=== PATIENT | male | born 2000 | race Caucasian/White ===

== ENCOUNTER 2021-02-21 16:51 | Observation (INO) ==
[2021-02-21] MEDS ORDERED: Naloxone 0.4 MG/ML INJ IVP PRN (20:00)
[2021-02-21] MEDS ORDERED: Ondansetron 4 MG/2 ML VIAL IVP PRN (20:00)
[2021-02-21] MEDS ORDERED: Acetaminophen 325 MG TABLET PO PRN (20:00)
[2021-02-21] MEDS ORDERED: D5% in 0.45% NACL 1,000 ML IVC PRN (20:09)
[2021-02-21] MEDS ORDERED: Insulin LISPRO 300 UNITS/3 ML VIAL SUBQ PRN (20:09)
[2021-02-21] MEDS ORDERED: *HR* Dextrose 50 % in Water (Syg) 50 ML SYRINGE IVP PRN (20:09)
[2021-02-21] MEDS ORDERED: 0.9 % Sodium Chloride w KCl 20 MEQ/1,000 ML MLS IVC SCH (20:15)
[2021-02-21] MEDS ORDERED: 0.9 % Sodium Chloride 1,000 ML IVC SCH (20:15)
[2021-02-21] MEDS ORDERED: Melatonin 3 MG TABLET PO PRN (21:00)
[2021-02-21 21:08] LABS: BUN/Creatinine Ratio 15 (6-26); Blood Urea Nitrogen 15 mg/dL (6-20); Calcium 8.1 mg/dL (8.6-10.3); Carbon Dioxide 9 mEq/L (23-29); Chloride 102 mEq/L (98-107); Glucose 222 mg/dL (70-105); Osmolality,Calculated 280 (280-300); Potassium 4.2 mEq/L (3.5-5.1); Sodium 131 mEq/L (136-145); eGFR For African Americans > 60; eGFR For Non-African Americans > 60
[2021-02-22 00:52] LABS: Basophils % 0.2 %; Eosinophils % 0.2 %; Hematocrit 42.7 % (37.5-50.1); Immature Granulocytes % 0.8 % (0-4); Lymphocytes # 1.8 K/mcL (0.6-4.6); Lymphocytes % 13.5 %; Mean Corpuscular HGB Conc 35.1 g/dL (31.6-35.5); Mean Corpuscular Hemoglobin 29.4 pg (28.0-33.3); Mean Corpuscular Volume 83.7 fL (83.0-100.0); Mean Platelet Volume 10.4 fL (9.4-12.4); Monocytes # 0.7 K/mcL (0.0-1.3); Neutrophils # 10.7 K/mcL (1.6-8.9); Platelet Count 262 K/mcL (140-400); Red Cell Distribution Width 12.8 % (11.5-14.5); Segmented Neutrophils % 80.3 %; White Blood Count 13.3 K/mcL (4.3-11.1)
[2021-02-22 01:10] LABS: Magnesium 1.9 mg/dL (1.6-2.6); Phosphorous 1.8 mg/dL (2.7-4.5)
[2021-02-22] MEDS: 0.9 % Sodium Chloride 1,000 ML IVC SCH ×4 (01:15→11:41)
[2021-02-22 01:17] LABS: BUN/Creatinine Ratio 13 (6-26); Blood Urea Nitrogen 13 mg/dL (6-20); Calcium 8.2 mg/dL (8.6-10.3); Carbon Dioxide 10 mEq/L (23-29); Chloride 106 mEq/L (98-107); Glucose 129 mg/dL (70-105); Osmolality,Calculated 278 (280-300); Potassium 3.7 mEq/L (3.5-5.1); Sodium 133 mEq/L (136-145); eGFR For African Americans > 60; eGFR For Non-African Americans > 60
[2021-02-22] MEDS: D5% in 0.45% NACL w KCl 20 MEQ/1,000 ML MLS IVC PRN ×2 (01:57→05:55)
[2021-02-22 06:04] LABS: Estimated Average Glucose 324 mg/dl; Hemoglobin A1C 12.9 %
[2021-02-22 06:54] LABS: BUN/Creatinine Ratio 13 (6-26); Blood Urea Nitrogen 12 mg/dL (6-20); Calcium 8.4 mg/dL (8.6-10.3); Carbon Dioxide 16 mEq/L (23-29); Chloride 108 mEq/L (98-107); Glucose 108 mg/dL (70-105); Osmolality,Calculated 278 (280-300); Potassium 3.5 mEq/L (3.5-5.1); Sodium 134 mEq/L (136-145); eGFR For African Americans > 60; eGFR For Non-African Americans > 60
[2021-02-22] MEDS ORDERED: Insulin DETEMIR 100 UNIT/ML X5UNITS SUBQ ONE (09:15)
[2021-02-22 09:57] LABS: BUN/Creatinine Ratio 10 (6-26); Blood Urea Nitrogen 10 mg/dL (6-20); Calcium 8.4 mg/dL (8.6-10.3); Carbon Dioxide 17 mEq/L (23-29); Chloride 107 mEq/L (98-107); Glucose 140 mg/dL (70-105); Osmolality,Calculated 279 (280-300); Potassium 3.6 mEq/L (3.5-5.1); Sodium 134 mEq/L (136-145); eGFR For African Americans > 60; eGFR For Non-African Americans > 60
[2021-02-22] MEDS ORDERED: D5% in Water 1,000 ML IVC PRN ×2 (11:42→16:54)
[2021-02-22] MEDS ORDERED: Dextrose Gel 15 GM/37.5 ML TUBE PO PRN ×4 (11:42→16:54)
[2021-02-22] MEDS ORDERED: *HR* Dextrose 50 % in Water (Syg) 50 ML SYRINGE IVP PRN ×2 (11:42→16:54)
[2021-02-22] MEDS: Insulin LISPRO 300 UNITS/3 ML VIAL SUBQ SCH ×2 (12:37→17:21)
[2021-02-22 13:31] LABS: BUN/Creatinine Ratio 9 (6-26); Blood Urea Nitrogen 8 mg/dL (6-20); Calcium 8.6 mg/dL (8.6-10.3); Carbon Dioxide 14 mEq/L (23-29); Chloride 104 mEq/L (98-107); Glucose 254 mg/dL (70-105); Osmolality,Calculated 281 (280-300); Potassium 3.5 mEq/L (3.5-5.1); Sodium 132 mEq/L (136-145); eGFR For African Americans > 60; eGFR For Non-African Americans > 60
[2021-02-22] MEDS ORDERED: Insulin LISPRO 300 UNITS/3 ML VIAL SUBQ SCH ×2 (17:30→21:00)
[2021-02-22 19:32] LABS: Estimated Average Glucose 312 mg/dl; Hemoglobin A1C 12.5 %
[2021-02-22 19:41] VITALS: BP 128/74; PULSE 100; TEMP 98.3; O2SAT 99
[2021-02-22] MEDS ORDERED: Insulin DETEMIR 100 UNIT/ML X5UNITS SUBQ SCH (21:00)
[2021-02-23] MEDS ORDERED: Insulin LISPRO 300 UNITS/3 ML VIAL SUBQ SCH (07:30)
== END 2021-02-22 22:09 | disposition left against medical advice (07) ==
LOC: 3NENU → SUATTDRO 19:07
PROVIDERS: ADMIT Internal Medicine; ATTEND Internal Medicine

== ENCOUNTER 2021-05-08 14:47 | Observation (INO) ==
[2021-05-08] MEDS ORDERED: Melatonin 3 MG TABLET PO PRN (19:48)
[2021-05-08] MEDS ORDERED: *HR* HYDROcodone/Acet 5/325 mg TABLET PO PRN (19:48)
[2021-05-08] MEDS ORDERED: Ondansetron 4 MG/2 ML VIAL IVP PRN (19:48)
[2021-05-08] MEDS ORDERED: Naloxone 0.4 MG/ML INJ IVP PRN ×2 (19:48→22:35)
[2021-05-08] MEDS ORDERED: Acetaminophen 325 MG TABLET PO PRN (19:48)
[2021-05-08] MEDS ORDERED: Insulin Regular, Human 100 UNIT/ML IV PRN (19:51)
[2021-05-08] MEDS ORDERED: *HR* Dextrose 50 % in Water (Syg) 50 ML SYRINGE IVP PRN (19:51)
[2021-05-08] MEDS ORDERED: D5% in 0.45% NACL w KCl 20 MEQ/1,000 ML MLS IVC PRN (19:56)
[2021-05-08 21:12] LABS: Basophils % 0.4 %; Eosinophils % 0.2 %; Hematocrit 50.5 % (37.5-50.1); Hemoglobin 17.4 g/dL (12.9-16.9); Immature Granulocytes % 0.6 % (0-4); Lymphocytes # 1.2 K/mcL (0.6-4.6); Lymphocytes % 12.4 %; Mean Corpuscular HGB Conc 34.5 g/dL (31.6-35.5); Mean Corpuscular Hemoglobin 29.1 pg (28.0-33.3); Mean Corpuscular Volume 84.6 fL (83.0-100.0); Mean Platelet Volume 10.4 fL (9.4-12.4); Monocytes # 0.3 K/mcL (0.0-1.3); Monocytes % 2.7 %; Neutrophils # 8.2 K/mcL (1.6-8.9); Platelet Count 235 K/mcL (140-400); Red Blood Count 5.97 M/mcL (4.19-5.50); Segmented Neutrophils % 83.7 %; White Blood Count 9.8 K/mcL (4.3-11.1)
[2021-05-08 21:20] LABS: Estimated Average Glucose 326 mg/dl
[2021-05-08 21:22] LABS: Prothrombin Time 11.2 Seconds (9.4-12.1)
[2021-05-08 21:36] LABS: VBG HCO3 12 mEq/L (21-27); VBG PCO2 33 mmHg (41-51); VBG PH 7.18 pH Units (7.32-7.42); VBG PO2 58 mmHg (25-50)
[2021-05-08 21:38] LABS: Alanine Aminotransferase 19 Units/L (7-52); Albumin 4.9 g/dL (3.5-5.7); Albumin/Globulin Ratio 1.6 (1.1-2.2); Alkaline Phosphatase 114 Units/L (34-104); Aspartate Amino Transferase 16 Units/L (13-39); BUN/Creatinine Ratio 12 (6-26); Blood Urea Nitrogen 14 mg/dL (6-20); C-Reactive Protein < 5 mg/L (Less than 10); Calcium 8.8 mg/dL (8.6-10.3); Carbon Dioxide 14 mEq/L (23-29); Chloride 102 mEq/L (98-107); Globulin 3.1 g/dL (2.4-3.5); Glucose 195 mg/dL (70-105); Lactate Dehydrogenase 132 Units/L (140-271); Osmolality,Calculated 292 (280-300); Phosphorous 3.3 mg/dL (2.7-4.5); Sodium 138 mEq/L (136-145); eGFR For African Americans > 60; eGFR For Non-African Americans > 60
[2021-05-08 21:53] LABS: Ferritin 228 ng/mL (20-250)
[2021-05-08] MEDS: D5% in 0.45% NACL w KCl 20 MEQ/1,000 ML MLS IVC SCH (22:46)
[2021-05-08 23:21] LABS: Influenza A PCR Negative (Negative); Influenza B PCR Negative (Negative); Resp. Syncytial Virus PCR Negative (Negative)
[2021-05-08 23:29] LABS: SARS-CoV-2 by PCR (In House) Negative (Negative)
[2021-05-09 02:11] LABS: VBG HCO3 18 mEq/L (21-27); VBG PCO2 40 mmHg (41-51); VBG PH 7.26 pH Units (7.32-7.42); VBG PO2 76 mmHg (25-50)
[2021-05-09 02:26] LABS: BUN/Creatinine Ratio 11 (6-26); Blood Urea Nitrogen 11 mg/dL (6-20); Calcium 8.6 mg/dL (8.6-10.3); Carbon Dioxide 17 mEq/L (23-29); Chloride 105 mEq/L (98-107); Glucose 162 mg/dL (70-105); Osmolality,Calculated 283 (280-300); Potassium 3.8 mEq/L (3.5-5.1); Sodium 135 mEq/L (136-145); eGFR For African Americans > 60; eGFR For Non-African Americans > 60
[2021-05-09] MEDS: D5% in 0.45% NACL w KCl 20 MEQ/1,000 ML MLS IVC SCH (04:01)
[2021-05-09 04:07] LABS: Basophils % 0.4 %; Eosinophils # 0.2 K/mcL (0.0-0.6); Eosinophils % 1.9 %; Hematocrit 43.2 % (37.5-50.1); Hemoglobin 15.4 g/dL (12.9-16.9); Immature Granulocytes % 0.4 % (0-4); Lymphocytes # 1.9 K/mcL (0.6-4.6); Lymphocytes % 23.4 %; Mean Corpuscular HGB Conc 35.6 g/dL (31.6-35.5); Mean Corpuscular Hemoglobin 29.2 pg (28.0-33.3); Mean Corpuscular Volume 81.8 fL (83.0-100.0); Mean Platelet Volume 9.8 fL (9.4-12.4); Monocytes # 0.5 K/mcL (0.0-1.3); Monocytes % 5.8 %; Neutrophils # 5.7 K/mcL (1.6-8.9); Platelet Count 223 K/mcL (140-400); Red Blood Count 5.28 M/mcL (4.19-5.50); Red Cell Distribution Width 11.9 % (11.5-14.5); Segmented Neutrophils % 68.1 %; White Blood Count 8.3 K/mcL (4.3-11.1)
[2021-05-09 04:14] LABS: VBG HCO3 20 mEq/L (21-27); VBG PCO2 37 mmHg (41-51); VBG PH 7.33 pH Units (7.32-7.42); VBG PO2 147 mmHg (25-50)
[2021-05-09 04:25] LABS: BUN/Creatinine Ratio 10 (6-26); Blood Urea Nitrogen 9 mg/dL (6-20); Calcium 8.4 mg/dL (8.6-10.3); Carbon Dioxide 18 mEq/L (23-29); Chloride 107 mEq/L (98-107); Glucose 118 mg/dL (70-105); Osmolality,Calculated 282 (280-300); Potassium 3.6 mEq/L (3.5-5.1); Sodium 136 mEq/L (136-145); eGFR For African Americans > 60; eGFR For Non-African Americans > 60
[2021-05-09] MEDS ORDERED: *HR* Dextrose 50 % in Water (Syg) 50 ML SYRINGE IVP PRN (05:04)
[2021-05-09] MEDS ORDERED: D5% in Water 1,000 ML IVC PRN (05:04)
[2021-05-09] MEDS ORDERED: Insulin DETEMIR 100 UNIT/ML X5UNITS SUBQ STA (05:04)
[2021-05-09] MEDS ORDERED: Dextrose Gel 15 GM/37.5 ML TUBE PO PRN ×2 (05:04)
[2021-05-09] MEDS ORDERED: *HR* Heparin 5,000 UNIT/ML VIAL SQ SCH (06:00)
[2021-05-09] MEDS: Insulin LISPRO 300 UNITS/3 ML VIAL SUBQ SCH ×2 (09:12→12:07)
[2021-05-09 10:10] LABS: VBG HCO3 17 mEq/L (21-27); VBG PCO2 35 mmHg (41-51); VBG PO2 45 mmHg (25-50)
[2021-05-09 10:43] LABS: BUN/Creatinine Ratio 9 (6-26); Blood Urea Nitrogen 8 mg/dL (6-20); Calcium 8.6 mg/dL (8.6-10.3); Carbon Dioxide 16 mEq/L (23-29); Chloride 100 mEq/L (98-107); Glucose 242 mg/dL (70-105); Osmolality,Calculated 280 (280-300); Potassium 3.8 mEq/L (3.5-5.1); Sodium 132 mEq/L (136-145); eGFR For African Americans > 60; eGFR For Non-African Americans > 60
[2021-05-09 12:10] VITALS: BP 126/80; PULSE 73; TEMP 98; O2SAT 99
[2021-05-10] MEDS ORDERED: Insulin DETEMIR 100 UNIT/ML X5UNITS SUBQ SCH (09:00)
== END 2021-05-09 16:00 | disposition home or self-care (01) ==
LOC: 2NNU → SUATTDRO 19:00
PROVIDERS: ADMIT Hospitalist; ATTEND Internal Medicine

== ENCOUNTER 2022-01-03 20:59 | Observation (INO) ==
[2022-01-03] MEDS ORDERED: Naloxone 0.4 MG/ML INJ IVP PRN (23:50)
[2022-01-03] MEDS ORDERED: Insulin LISPRO 300 UNITS/3 ML VIAL SUBQ PRN (23:50)
[2022-01-03] MEDS ORDERED: *HR* Dextrose 50 % in Water (Syg) 50 ML SYRINGE IVP PRN (23:50)
[2022-01-03] MEDS ORDERED: *HR* Promethazine 25 MG/ML VIAL IM PRN (23:50)
[2022-01-04] MEDS: D5% in 0.45% NACL w KCl 20 MEQ/1,000 ML MLS IVC PRN ×2 (00:14→04:19)
[2022-01-04] MEDS ORDERED: 0.9 % Sodium Chloride w KCl 20 MEQ/1,000 ML MLS IVC SCH (00:15)
[2022-01-04] MEDS ORDERED: 0.9 % Sodium Chloride w KCl 20 MEQ/1,000 ML MLS IVC PRN (00:15)
[2022-01-04 01:38] LABS: Basophils # 0.1 K/mcL (0.0-0.2); Basophils % 0.6 %; Eosinophils # 0.2 K/mcL (0.0-0.6); Eosinophils % 1.9 %; Hematocrit 42.7 % (37.5-50.1); Hemoglobin 15.4 g/dL (12.9-16.9); Immature Granulocytes % 0.5 % (0-4); Lymphocytes # 2.9 K/mcL (0.6-4.6); Mean Corpuscular HGB Conc 36.1 g/dL (31.6-35.5); Mean Corpuscular Volume 83.1 fL (83.0-100.0); Mean Platelet Volume 10.3 fL (9.4-12.4); Monocytes # 0.5 K/mcL (0.0-1.3); Monocytes % 5.6 %; Neutrophils # 4.9 K/mcL (1.6-8.9); Platelet Count 218 K/mcL (140-400); Red Blood Count 5.14 M/mcL (4.19-5.50); Red Cell Distribution Width 12.1 % (11.5-14.5); Segmented Neutrophils % 57.4 %; White Blood Count 8.6 K/mcL (4.3-11.1)
[2022-01-04 01:43] LABS: VBG HCO3 18 mEq/L (21-27); VBG PCO2 32 mmHg (41-51); VBG PH 7.36 pH Units (7.32-7.42); VBG PO2 200 mmHg (25-50)
[2022-01-04 01:58] LABS: BUN/Creatinine Ratio 16 (6-26); Blood Urea Nitrogen 15 mg/dL (6-20); Carbon Dioxide 18 mEq/L (23-29); Chloride 103 mEq/L (98-107); Glucose 127 mg/dL (70-105); Magnesium 1.8 mg/dL (1.6-2.6); Osmolality,Calculated 276 (280-300); Phosphorous 2.8 mg/dL (2.7-4.5); Potassium 3.5 mEq/L (3.5-5.1); Sodium 132 mEq/L (136-145)
[2022-01-04 02:48] LABS: Estimated Average Glucose 292 mg/dl; Hemoglobin A1C 11.8 %
[2022-01-04] MEDS ORDERED: *HR* Enoxaparin 40 MG/0.4 ML SYRINGE SQ SCH (06:00)
[2022-01-04 06:23] LABS: BUN/Creatinine Ratio 15 (6-26); Blood Urea Nitrogen 13 mg/dL (6-20); Calcium 8.1 mg/dL (8.6-10.3); Carbon Dioxide 20 mEq/L (23-29); Chloride 104 mEq/L (98-107); Glucose 122 mg/dL (70-105); Osmolality,Calculated 277 (280-300); Potassium 3.4 mEq/L (3.5-5.1); Sodium 133 mEq/L (136-145)
[2022-01-04] MEDS ORDERED: D5% in Water 1,000 ML IVC PRN (06:29)
[2022-01-04] MEDS ORDERED: *HR* Dextrose 50 % in Water (Syg) 50 ML SYRINGE IVP PRN (06:29)
[2022-01-04] MEDS ORDERED: Dextrose Gel 15 GM/37.5 ML TUBE PO PRN ×2 (06:29)
[2022-01-04] MEDS: Insulin LISPRO 300 UNITS/3 ML VIAL SUBQ SCH ×2 (08:06→11:27)
[2022-01-04] MEDS ORDERED: Insulin DETEMIR 100 UNIT/ML X5UNITS SUBQ SCH (09:00)
[2022-01-04 09:54] LABS: Adenovirus Not Detected (Not Detect); Coronavirus 229E Not Detected (Not Detect); Coronavirus HKU1 Not Detected (Not Detect); Coronavirus NL63 Not Detected (Not Detect); Coronavirus OC43 Not Detected (Not Detect); Human Metapneumovirus Not Detected (Not Detect); Human Rhinovirus/Enterovirus Not Detected (Not Detect); Influenza A Subtype 2009 H1 Not Detected (Not Detect); Influenza B Not Detected (Not Detect); Parainfluenza Virus 1 Not Detected (Not Detect); Parainfluenza Virus 2 Not Detected (Not Detect); Parainfluenza Virus 3 Not Detected (Not Detect); SARS-CoV-2 Not Detected (Not Detect)
[2022-01-04 09:55] LABS: Bordetella Pertussis Not Detected (Not Detect); Chlamydophila pneumoniae Not Detected (Not Detect); Mycoplasma pneumoniae Not Detected (Not Detect); Parainfluenza Virus 4 Not Detected (Not Detect); Respiratory Syncytial Virus Not Detected (Not Detect)
[2022-01-04 11:01] VITALS: BP 124/72; TEMP 98.4; O2SAT 95
[2022-01-04 11:46] VITALS: PULSE 87
[2022-01-04] MEDS ORDERED: Insulin LISPRO 300 UNITS/3 ML VIAL SUBQ SCH (21:00)
== END 2022-01-04 13:20 | disposition home or self-care (01) ==
LOC: 2NNU → SUATTDRO 23:28
PROVIDERS: ADMIT Internal Medicine; ATTEND Student in an Organized Health Care Education/Training Program